=== PATIENT | male | born 2000 | race African-American/Black ===

== ENCOUNTER 2020-07-24 17:43 | Emergency (ER) | payer BC ==
[2020-07-24] MEDS ORDERED: Acetaminophen 500 MG TAB ONE (18:57)
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
[2020-07-24 19:14] LABS: Bilirubin Negative (Negative); Blood, Urine Negative (Negative); Clarity Clear (Clear); Glucose, Urine (Dipstick) Normal (Negative); Ketone, Urine Negative (Negative); Leukocyte Negative Leu/uL (Negative); Nitrite Negative (Negative); Protein, Urine (Dipstick) 10 mg/dL (Neg-Trace); Specific Gravity, Urine 1.025 (1.002-1.036)
== END 2020-07-24 19:55 | disposition home or self-care (01) ==
LOC: ERS 17:43
DX: S30.1XXA Contusion of abdominal wall, initial encounter (principal); V89.2XXA Person injured in unspecified motor-vehicle accident, traffic, initial encounter
CPT/HCPCS: 71045; 81003